=== PATIENT | female | born 1995 | race Caucasian/White ===

== ENCOUNTER 2020-07-17 16:04 | Emergency (ER) | payer MEDICAID, SELFPAY ==
[2020-07-17 16:12] VITALS: BP 140/65; PULSE 106; RESP 19; TEMP 36.9; O2SAT 100; BMI 45.7
[2020-07-17 16:41] VITALS: BP 140/65; PULSE 106; RESP 19; TEMP 36.9; O2SAT 100; BMI 45.7
--- NOTE | 2020-07-17 16:45 | HMH.EDUTC ---
[facility] [place] Disposition Clinical Impression: Insect bite Qualifiers: Encounter type: initial encounter Site of insect bite: upper arm Laterality: right Qualified Code(s): S40.861A - Insect bite (nonvenomous) of right upper arm, initial encounter Disposition: Home, Self-Care Condition on Discharge: Good Instructions: Insect Bites (Alternative Therapy), Insect Bites and Stings, DI for Insect Bites and Stings Additional Instructions: Over the counter Hydrocortisone Cream to the area may help if you notice that the welp returns Over the counter Benadry may help with reactions to bites or stings Return if needed Straight to ER If any life threatening symptoms, chest pain or shortness of breath Follow up with Family Doctor if no improvement or return of symptoms Referrals: Fang Hernandez PA [Primary Care Provider] - As needed Forms: Work/School Release Time of Disposition: 17:02 Medical Decision Making - Azar Inquiry Pt receiving controlled substance: No Azar was queried for this patient: No Vital Signs: 07/17/20 16:12 07/17/20 16:41 07/17/20 16:49 Temperature 98.5 F 98.5 F 98.5 F Temperature Source Oral Oral Pulse Rate 89 Pulse Rate [Left Radial] 106 H 106 H Respiratory Rate 19 19 19 Blood Pressure 140/65 Blood Pressure [Right Arm] 140/65 140/65 Blood Pressure Mean [Right Arm] 90 90 Blood Pressure Source [Right Arm] Automatic Cuff Automatic Cuff Blood Pressure Position [Right Arm] Sitting Sitting 02 Sat by Pulse Oximetry 100 100 Oxygen Delivery Method Room Air Room Air Medical Decision Narrative: No longer having any redness, no swelling, no temperature difference, denies numbness denies injury reports feeling of bite/sting last night in right upper arm as she left work like something may have bitten/stung her no obvious swelling or redness noted at this time. Patient denies history of use of Control and area that she was feeling on her arm is no longer there. Discussed that she may apply over the counter Hydrocortisone to area to help with itching and over the counter benadryl [facility] [place] HPI - General Stated complaint: Possible blood clot in R Upper arm Time Seen by Provider: 07/17/20 16:45 Mode of Arrival: Ambulatory Source of Information: Patient Limitations: No Limitations Description of Symptoms (Recalled from Triage Doc. by RN): c/o red area on the inner part of her right arm. - History of Present Illness Provider Complaint: Patient states that she was leaving work yesterday when she felt a sting in her right upper arm like something had bitten her States that she looked and didnt see any type of bugs and she noticed when she got home that she had a welp like area and small hard knot and felt itchy States that then she noticed the welp was going away but still having some itchy like sensation there States that she felt like the knot moved as the swelling went down States that knot is now gone and no longer having any redness but wanted to get it checked - Related Data Previous Rx's Medication Instructions Recorded ondansetron HCl 4 mg tablet 4 mg PO TID PRN #6 tab 03/27/19 Allergies Allergy/AdvReac Type Severity Reaction Status Date / Time latex [LATEX] Allergy Unknown Verified 03/27/19 10:50 [facility] History - Hepatitis A Screen Attestation statement:: This patient has been screened for Hepatitis A risk factors. I have reviewed the patient's past medical history: Yes Other Surgeries: Yes: No Previous Surgery Amputation: No Fractures: No - Social History Smoking Status: Never smoker Alcohol Intake: never Substance Use Type: denies use Occupational Status: employed Housing: house Household Members: family Family Hx:: Non-contributory ROS Obtained: Yes All systems reviewed & no additional complaints, Yes Systems reviewed as appropriate & no additional complaints - Constitutional Constitutional: Reports system reviewed and no additional complaints, except as Rajesh restrepo
[2020-07-17 16:49] VITALS: BP 140/65; PULSE 89; RESP 19; TEMP 36.9; O2SAT 100
== END 2020-07-17 17:05 | disposition home or self-care (01) ==
PROVIDERS: Emergency Provider Nurse Practitioner; PCP Nurse Practitioner Family
DX: S40.861A Insect bite (nonvenomous) of right upper arm, initial encounter (principal); W57.XXXA Bitten or stung by nonvenomous insect and other nonvenomous arthropods, initial encounter; Z91.040 Latex allergy status
CPT/HCPCS: 99201

== ENCOUNTER 2021-02-14 11:52 | Emergency (ER) | payer OTHER, SELFPAY ==
[2021-02-14 11:59] VITALS: BP 147/103; PULSE 89; RESP 18; TEMP 36.8; O2SAT 100; BMI 45.7
--- NOTE | 2021-02-14 12:05 | HMH.EDUTC ---
[facility] [place] Disposition Clinical Impression: Injury of thumb, right Qualifiers: Encounter type: initial encounter Qualified Code(s): S69.91XA - Unspecified injury of right wrist, hand and finger(s), initial encounter Sprain of hand, thumb, right Qualifiers: Encounter type: initial encounter Sprain of finger site: interphalangeal joint Qualified Code(s): S63.621A - Sprain of interphalangeal joint of right thumb, initial encounter Disposition: Home, Self-Care Condition on Discharge: Good Instructions: DI for Ulnar Collateral Ligament Sprain of Thumb Additional Instructions: Go to [employer] 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 Call ortho Wednesday morning for follow up appointment. Prescriptions: Ibuprofen [Ibuprofen 800mg Tablet] 800 mg PO Q8HP PRN 10 Days #30 tab PRN Reason: Moderate Pain Transmission Status: Pending to [facility] Referrals: Adán Cole MD [Staff Physician] - Time of Disposition: 12:57 Medical Decision Making - Azar Inquiry Pt receiving controlled substance: No Vital Signs: 02/14/21 11:59 02/14/21 12:07 Temperature 98.3 F 98.3 F Temperature Source Oral Oral Pulse Rate [Left Radial] 89 89 Respiratory Rate 18 16 Blood Pressure [Left Arm] 147/103 H 138/98 H Blood Pressure Mean [Left Arm] 117 111 Blood Pressure Source [Left Arm] Automatic Cuff Automatic Cuff Blood Pressure Position [Left Arm] Sitting Sitting 02 Sat by Pulse Oximetry 100 98 Oxygen Delivery Method Room Air Room Air Orders (Tests/Meds): ORDERS Category Date Time Status XR hand RT min 3V Stat Exams 02/14/21 12:09 Taken - Radiology Data #1 Image(s): Hand Image Reviewed: Yes I reviewed the patient's radiology image Preliminary Findings: No Fracture Seen [facility] [place] HPI - General Stated complaint: ao 02/13/21 injury to Rt thumb Time Seen by Provider: 02/14/21 12:08 Mode of Arrival: Ambulatory Source of Information: Patient Limitations: No Limitations Description of Symptoms (Recalled from Triage Doc. by RN): Pt c/o pain to R thumb; bruising and swelling noted. Pt reports injured at work yesterday while trying to life a dog, states her thumb bent backwards. - History of Present Illness Provider Complaint: Patient presents with pain and swelling in her right thumb. Started yesterday after lifting a dog at work. Has limited ROM and swelling and bruising. Onset (ago): day(s) (1) Location: right, upper extremity Relieving factors: none Exacerbating factors: none Associated symptoms: denies other symptoms Treatments prior to arrival: none - Related Data Previous Rx's Medication Instructions Recorded ondansetron HCl 4 mg tablet 4 mg PO TID PRN #6 tab 03/27/19 Ibuprofen [Ibuprofen 800mg 800 mg PO Q8HP PRN 10 Days #30 tab 02/14/21 Tablet] Allergies Allergy/AdvReac Type Severity Reaction Status Date / Time latex [LATEX] Allergy Unknown Verified 03/27/19 10:50 [facility] History - Hepatitis A Screen Attestation statement:: This patient has been screened for Hepatitis A risk factors. I have reviewed the patient's past medical history: Yes Medical History: Denies:: Cancer, Diabetes Mellitus Type 1, Diabetes Mellitus Type 2, Internal Pacemaker, MRSA Laterality Cases: Bilateral: Tonsillectomy Other Surgeries: Yes: No Previous Surgery. No: Pacemaker Amputation: No Fractures: No - Social History Smoking Status: Never smoker Alcohol Intake: never Substance Use Type: denies use Occupational Status: unemployed Housing: house Household Members: family Family Hx:: Non-contributory ROS Obtained: Yes All systems reviewed & no additional complaints - Musculoskeletal Musculoskeletal: Reports as per HPI Physical Exam - General General appearance: alert, in no apparent distress - Head Head exam: normocephalic - Eye Eye exam: Present: PERRL - Respiratory Respiratory exam: Present: normal lung sounds bilaterally - Cardiovascular Cardiovascular exam: Present: regular rate,
[2021-02-14 12:07] VITALS: BP 138/98; PULSE 89; RESP 16; TEMP 36.8; O2SAT 98; BMI 45.8
--- NOTE | 2021-02-14 12:09 | XR_ITS ---
PROCEDURE: XR HAND RT MIN 3V CLINICAL INDICATION: bent right thumb back with swelling and bruising COMPARISON: No exams were available for comparison FINDINGS: No fracture or dislocation. No lytic or blastic change. There is normal mineralization. The joint spaces are well-preserved. No significant degenerative/arthritic changes. No erosive changes evident. Other findings:None. IMPRESSION: No acute findings. Dictated by: Imtiaz Nunez MD 02/14/2021 13:16 Imtiaz Nunez MD in [place] 02/14/2021 13:16
[2021-02-14 13:02] VITALS: BP 132/72; PULSE 80; RESP 16; TEMP 36.8; O2SAT 98
== END 2021-02-14 13:04 | disposition home or self-care (01) ==
PROVIDERS: Emergency Provider Physician Assistant
DX: S63.621A Sprain of interphalangeal joint of right thumb, initial encounter (principal); X50.0XXA Overexertion from strenuous movement or load, initial encounter; Y92.89 Other specified places as the place of occurrence of the external cause; Z91.040 Latex allergy status
CPT/HCPCS: 73130; 99202; G0463

== ENCOUNTER 2021-03-07 09:03 | Outpatient (RCR) | payer OTHER, SELFPAY | END 2021-03-07 10:00 | disposition home or self-care (01) | LOC: OT 09:03 | PROVIDERS: Visit Provider Orthopaedic Surgery | DX: M79.644 Pain in right finger(s) (principal) | CPT/HCPCS: 97763 ==

== ENCOUNTER → 2021-07-09 10:34 | Outpatient (CLI) | payer SELFPAY | PROVIDERS: Visit Provider Nurse Practitioner | DX: Z20.822 Contact with and (suspected) exposure to COVID-19 (principal) | CPT/HCPCS: C9803; U0003; U0005 ==

== ENCOUNTER → 2021-07-27 12:12 | Outpatient (CLI) | payer OTHER, SELFPAY | PROVIDERS: PCP Family Medicine; Visit Provider Nurse Practitioner | DX: Z20.822 Contact with and (suspected) exposure to COVID-19 (principal); U07.1 COVID-19 | CPT/HCPCS: C9803; U0003; U0005 ==

== ENCOUNTER 2022-06-15 11:49 | Emergency (ER) | payer OTHER, SELFPAY ==
[2022-06-15 13:15] VITALS: BP 145/89; PULSE 89; RESP 18; TEMP 36.9; O2SAT 97; BMI 45.7
--- NOTE | 2022-06-15 13:17 | HMH.EDUTC ---
[facility] [place] Disposition Clinical Impression: Need for Tdap vaccination Dog bite of left arm Qualifiers: Encounter type: initial encounter Qualified Code(s): S41.152A - Open bite of left upper arm, initial encounter Disposition: Home, Self-Care Condition on Discharge: Good Instructions: DI for Animal Bites, Tetanus, Diphtheria, Pertussis (Tdap) Vaccine, DI for Dog Bite Additional Instructions: Keep the wounds clean and dry. Follow up with your regular doctor. Take the antibiotics as directed. apply the topical antibiotics as directed. Make sure you stay in contact with the health department regarding the health of the dog. Watch the puncture wound for signs of worsening infection, such as worsening redness, drainage, swelling, etc. GO TO THE ER FOR ANY WORSENING SYMPTOMS Prescriptions: Ibuprofen [Ibuprofen 600mg Tablet] 600 mg PO Q6HP PRN #30 tab PRN Reason: Mild Pain Transmission Status: Received by [id number] Amoxicillin/Potassium Clav [Amox-Clav 875-125 mg Tablet] 1 tab PO BID #20 tab Transmission Status: Received by [facility] Mupirocin [Bactroban 2% Ointment 22gm tube] 1 applicatio TP TID 7 Days #1 gm Transmission Status: Received by [id number] Referrals: Provider,Referral, MD [Primary Care Provider] - Forms: Work/School Release Time of Disposition: 14:24 Medical Decision Making - Medical Records Medical records reviewed: No: I reviewed the patient's medical records. - Azar Inquiry Pt receiving controlled substance: No Vital Signs: 06/15/22 13:15 06/15/22 14:25 Temperature 98.4 F 98.4 F Temperature Source Oral Pulse Rate 89 Pulse Rate [Right Brachial] 89 Respiratory Rate 18 18 Blood Pressure 145/89 H Blood Pressure [Right Arm] 145/89 H Blood Pressure Mean [Right Arm] 107 Blood Pressure Source [Right Arm] Automatic Cuff Blood Pressure Position [Right Arm] Sitting 02 Sat by Pulse Oximetry 97 Oxygen Delivery Method Room Air Orders (Tests/Meds): ED MEDICATIONS Discontinued Medications Generic Name Dose Route Start Last Admin Trade Name Freq PRN Reason Stop Dose Admin Tetanus/Reduced Diphtheria/Acell Pertussis 0.5 ml 06/15/22 13:32 06/15/22 13:45 Tet/Diphth/Pert-Adult 0.5ml Syringe IM 06/15/22 13:33 0.5 ml .ONCE ONE Administration - Radiology Data #1 Image(s): Elbow Image Reviewed: Yes I reviewed the patient's radiology image, Yes I have reviewed radiologist's interpretation Preliminary Findings: Normal/NAD FINAL REPORT CLINICAL HISTORY: dog bite FINDINGS: LEFT ELBOW Three views were obtained. There is no acute fracture or dislocation. There is orthopedic hardware and 4 screws at the distal humeral diaphysis. The joint spaces are intact. There is no soft tissue abnormality. IMPRESSION: No acute bony abnormality. 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 She has 1 deep puncture wound and several areas of superficialy abrasions. She denies any other injury. She is not sure when her last tetanus immunization was given to her. - Related Data Home Medications Medication Instructions Recorded Confirmed fluticasone propionate 50 1 spray INTRANASAL DAILY 03/07/21 05/02/21 mcg/actuation nasal spray,suspension loratadine 10 mg tablet 10 mg PO DAILY 03/07/21 05/02/21 Previous Rx's Medication Instructions Recorded Amoxicillin/Potassium Clav 1 tab PO BID #20 tab 06/15/22 [Amox-Clav 875-125 mg Tablet] Ibuprofen [Ibuprofen 600mg 600 mg PO Q6HP PRN #
[2022-06-15 14:25] VITALS: BP 145/89; PULSE 89; RESP 18; TEMP 36.9; O2SAT 97
== END 2022-06-15 14:40 | disposition home or self-care (01) ==
PROVIDERS: Emergency Provider Nurse Practitioner Family
DX: S41.152A Open bite of left upper arm, initial encounter (principal); Z23 Encounter for immunization
CPT/HCPCS: 12001; 73080; 90471; 90715; 99213; G0463

== ENCOUNTER 2022-09-10 20:28 | Emergency (ER) | payer OTHER, SELFPAY ==
[2022-09-10 20:30] VITALS: BP 145/83; PULSE 106; RESP 16; TEMP 36.6; O2SAT 98; BMI 45.3
[2022-09-10 20:52] LABS: Coronavirus 19, PCR Not Detected (NotDetected); Influenza A, PCR Not Detected (NotDetected); Influenza B, PCR Not Detected (NotDetected)
--- NOTE | 2022-09-10 20:56 | HMH.EDURI ---
Discharge Plan Disposition Patient Disposition: Home, Self-Care Chief Complaint: Upper Respiratory Infection Prescriptions Prescriptions: No Action loratadine [Claritin] 10 mg tablet 10 mg PO DAILY fluticasone propionate 50 mcg/actuation spray,suspension 1 spray INTRANASAL DAILY Rx Instructions: administer into each nostril ibuprofen 600 MG tablet 600 mg PO Q6HP PRN (Reason: Mild Pain) Qty: 30 0RF amoxicillin-pot clavulanate 1 EACH tablet 1 tab PO BID Qty: 20 0RF mupirocin 22 GM ointment 1 applicatio TP TID 7 Days Qty: 1 0RF Referrals Follow up/Referrals: Provider,Referral, MD [Primary Care Provider] - See instructions Clinical Impressions Clinical Impression: Upper respiratory infection, Instructions Patient Instructions: DI for Acute Bronchitis Discharge ED Provider: Jaime Rosales URI/Sore Throat HPI General Chief Complaint: Upper Respiratory Infection Stated Complaint: vomiting cough KATHLEEN Time Seen by Provider: 09/10/22 20:56 Mode of Arrival: Ambulatory Source of Information: Patient, Spouse and Medical Record Limitations: No Limitations Description of Symptoms (Recalled from ER Triage Doc. by RN): pt c/o cough, congestion,KATHLEEN, body aches fever since wednesday, pt states that she is currently 14 weeks History of Present Illness HPI Narrative: has been sick since sat and had uri sx with cough and congestion and has assoc kathleen which mostly started today - pt has seen pcp on wednesday - no vag bleeding and is 14 weeks preg Complaint: fever, cough and nasal congestion Onset (ago): day(s) Duration: intermittent Severity: moderate Able to tolerate fluids by mouth: Yes Treatments prior to arrival: acetaminophen Related Data Home Medications Medication Instructions Recorded Confirmed fluticasone propionate 50 1 spray intranasal DAILY 03/07/21 05/02/21 mcg/actuation nasal spray,suspension loratadine 10 mg tablet (Claritin) 10 mg PO DAILY 03/07/21 05/02/21 Previous Rx's Medication Instructions Recorded amoxicillin 875 mg-potassium 1 tab PO BID #20 tabs 06/15/22 clavulanate 125 mg tablet ibuprofen 600 mg tablet 600 mg PO Q6HP PRN Mild Pain #30 06/15/22 tabs mupirocin 2 % topical ointment 1 applicatio topical TID 7 days #1 06/15/22 g Allergies Allergy/AdvReac Type Severity Reaction Status Date / Time prednisone Allergy Intermediate Verified 05/02/21 09:45 latex [LATEX] Allergy Unknown Verified 05/02/21 09:45 PFSH PFSH Social History Smoking Status: Former smoker second hand exposure: No alcohol intake: never substance use type: denies use current occupational status: unemployed Travel in the last 8 weeks: None household members: family housing: house caffeine: Yes ROS Obtained: Yes All systems reviewed & no additional complaints except as documented Physical Exam General General appearance: alert Head Head exam: normocephalic Eye Eye exam: Present PERRL and EOMI; Absent scleral icterus ENT ENT exam: Present normal oropharynx, mucous membranes moist and TM's normal bilaterally Neck Neck exam: Present full ROM and trachea midline; Absent meningismus Respiratory Respiratory exam: Present normal lung sounds bilaterally; Absent respiratory distress Cardiovascular Cardiovascular exam: Present regular rate; Absent systolic murmur Abdominal Exam Abdominal exam: Present soft Comment: fht - ok Extremities Exam Extremities exam: Present full ROM Neurological Exam Neurological exam: Present alert, oriented X3 and CN II-XII intact; Absent motor sensory deficit Psychiatric Psychiatric exam: Present normal affect Skin Skin exam: Absent rash Medical Decision Making Medical Records Medical records reviewed: Yes I reviewed the patient's medical records. Azar Inquiry Pt receiving controlled substance: No Vital Signs: 09/10/22 20:30 Temperature 97.8 F Temperature Source Oral Pulse Rate [R
[2022-09-10 20:58] LABS: Basophils # 0.1 K/mm3 (0-0.2); Basophils % 0.7 % (0.1-2.0); Eosinophils # 0.1 K/mm3 (0.0-0.4); Eosinophils % 0.5 % (0.1-12.0); Hematocrit 40.4 % (37.0-47.0); Hemoglobin 13.6 g/dL (12.2-16.2); Lymphocytes # 3.1 K/mm3 (0.7-4.5); Lymphocytes % 23.8 % (10-50); Mean Corpuscular HGB Conc 33.8 g/dL (31.8-35.4); Mean Corpuscular Hemoglobin 30.1 pg (27.0-31.2); Mean Corpuscular Volume 89.2 fl (81-99); Mean Platelet Volume 8.7 fl (7.4-10.4); Monocytes # 0.5 K/mm3 (0.1-1.0); Monocytes % 3.8 % (1.7-9.3); Neutrophils # 9.2 K/mm3 (1.8-7.8); Neutrophils % 71.2 % (37.0-80.0); Platelet Count 302 K/mm3 (142-424); Red Blood Count 4.53 M/mm3 (4.20-5.40); Red Cell Distribution Width 12.9 % (11.5-17.5)
[2022-09-10 21:01] VITALS: BP 120/62; PULSE 88; O2SAT 100
[2022-09-10 21:02] LABS: Chloride 100 mmol/L (98-107); Sodium 136 mmol/L (136-145)
[2022-09-10 21:03] LABS: Potassium 3.6 mmoL/L (3.5-5.1)
[2022-09-10 21:05] LABS: Alanine Aminotransferase 21 U/L (12-78); Alkaline Phosphatase 102 U/L (38-126); Aspartate Amino Transferase 26 U/L (14-36); Bilirubin,Total 0.6 mg/dl (0.2-1.3); Blood Urea Nitrogen 5 mg/dl (7-17); Creatinine Clearance Estimated 132 mL/min (50-200); Estimated Glomerular Filt Rate 147 ml/min (>60); GFR (African American) 178 ML/MIN (>60)
[2022-09-10 21:06] LABS: Albumin Level 4.1 g/dl (3.5-5.0); Albumin/Globulin Ratio 1.1 (1.1-1.8); Anion Gap 14.6 mEq/L (5-15); Calcium 9.9 mg/dl (8.4-10.2); Carbon Dioxide 25 mmol/L (22.0-30.0); Globulin 3.7 g/dL (1.3-3.2); Glucose 85 mg/dl (74-100); Total Protein,Serum 7.8 g/dl (6.3-8.2)
--- NOTE | 2022-09-10 21:16 | PC.NURSE ---
Rechecked pt condition. No needs or complaints voiced. Pt made aware of need for urine sample.
--- NOTE | 2022-09-10 21:30 | PC.NURSE ---
Dr. Rosales at
[2022-09-10 22:05] VITALS: BP 115/78; PULSE 79; RESP 18; TEMP 36.6; O2SAT 100
== END 2022-09-10 22:08 | disposition home or self-care (01) ==
PROVIDERS: Emergency Provider Emergency Medicine
DX: O26.892 Other specified pregnancy related conditions, second trimester (principal); J06.9 Acute upper respiratory infection, unspecified; Z3A.14 14 weeks gestation of pregnancy
CPT/HCPCS: 80053; 85025; 99282; C9803; J2405; U0003; U0005

== ENCOUNTER 2023-02-19 12:02 | Outpatient (CLI) | payer OTHER, SELFPAY ==
[2023-02-19 13:04] VITALS: BMI 42.6
--- NOTE | 2023-02-19 13:08 | PC.NURSE ---
Pt stated that she received a tdap vaccine back in may and tolerated it fine.
== END 2023-02-19 12:10 | disposition home or self-care (01) ==
LOC: UTC.OUT 12:03
PROVIDERS: PCP Nurse Practitioner Family; Visit Provider Nurse Practitioner
DX: Z23 Encounter for immunization (principal)
CPT/HCPCS: 90715

== ENCOUNTER → 2023-07-16 11:02 | Outpatient (CLI) | payer OTHER, SELFPAY ==
[2023-07-16 11:22] LABS: Adenovirus F 40/41, stool Not Detected (NotDetected); Astrovirus Not Detected (NotDetected); Campylobacter Not Detected (NotDetected); Clostridium Difficile A/B, PCR Not Detected (NotDetected); Cryptosporidium Not Detected (NotDetected); Cyclospora Cayetanesis Not Detected (NotDetected); Entamoeba histolytica Not Detected (NotDetected); Enteroaggregative E coli Not Detected (NotDetected); Enteropathogenic E coli Not Detected (NotDetected); Enterotoxigenic E coli Not Detected (NotDetected); Giardia lamblia Not Detected (NotDetected); Norovirus Not Detected (NotDetected); Plesimonas Shigalloides, PCR Not Detected (NotDetected); Rotavirus A Not Detected (NotDetected); Salmonella, PCR Not Detected (NotDetected); Sapovirus Not Detected (NotDetected); Shiga-like toxin E coli Not Detected (NotDetected); Shigella Enterovasive E coli Not Detected (NotDetected); Vibrio Cholerae Not Detected (NotDetected); Vibrio, PCR Not Detected (NotDetected); Yersinia Entercolitica, PCR Not Detected (NotDetected)
== END ==
PROVIDERS: PCP Nurse Practitioner Family; Visit Provider Physician Assistant
DX: R19.4 Change in bowel habit (principal)
CPT/HCPCS: 87507

== ENCOUNTER → 2023-07-19 15:41 | Outpatient (CLI) | payer OTHER, SELFPAY ==
[2023-07-19 15:56] LABS: Adenovirus F 40/41, stool Not Detected (NotDetected); Astrovirus Not Detected (NotDetected); Campylobacter Not Detected (NotDetected); Cryptosporidium Not Detected (NotDetected); Cyclospora Cayetanesis Not Detected (NotDetected); Entamoeba histolytica Not Detected (NotDetected); Enteroaggregative E coli Not Detected (NotDetected); Enterotoxigenic E coli Not Detected (NotDetected); Giardia lamblia Not Detected (NotDetected); Norovirus Not Detected (NotDetected); Plesimonas Shigalloides, PCR Not Detected (NotDetected); Rotavirus A Not Detected (NotDetected); Salmonella, PCR Not Detected (NotDetected); Sapovirus Not Detected (NotDetected); Shiga-like toxin E coli Not Detected (NotDetected); Shigella Enterovasive E coli Not Detected (NotDetected); Vibrio Cholerae Not Detected (NotDetected); Vibrio, PCR Not Detected (NotDetected); Yersinia Entercolitica, PCR Not Detected (NotDetected)
[2023-07-20 15:18] LABS: Clostridium Difficile A/B, PCR Detected (NotDetected)
[2023-07-20 15:19] LABS: Enteropathogenic E coli Detected (NotDetected)
== END ==
PROVIDERS: PCP Nurse Practitioner Family; Visit Provider Physician Assistant
DX: R19.4 Change in bowel habit (principal); A04.72 Enterocolitis due to Clostridium difficile, not specified as recurrent; A04.0 Enteropathogenic Escherichia coli infection
CPT/HCPCS: 87507

== ENCOUNTER → 2023-09-07 10:03 | Outpatient (CLI) | payer OTHER, SELFPAY ==
[2023-09-07 10:11] LABS: Adenovirus F 40/41, stool Not Detected (NotDetected); Astrovirus Not Detected (NotDetected); Campylobacter Not Detected (NotDetected); Clostridium Difficile A/B, PCR Not Detected (NotDetected); Cryptosporidium Not Detected (NotDetected); Cyclospora Cayetanesis Not Detected (NotDetected); Entamoeba histolytica Not Detected (NotDetected); Enteroaggregative E coli Not Detected (NotDetected); Enteropathogenic E coli Not Detected (NotDetected); Enterotoxigenic E coli Not Detected (NotDetected); Giardia lamblia Not Detected (NotDetected); Norovirus Not Detected (NotDetected); Plesimonas Shigalloides, PCR Not Detected (NotDetected); Rotavirus A Not Detected (NotDetected); Salmonella, PCR Not Detected (NotDetected); Sapovirus Not Detected (NotDetected); Shiga-like toxin E coli Not Detected (NotDetected); Shigella Enterovasive E coli Not Detected (NotDetected); Vibrio Cholerae Not Detected (NotDetected); Vibrio, PCR Not Detected (NotDetected); Yersinia Entercolitica, PCR Not Detected (NotDetected)
== END ==
PROVIDERS: PCP Nurse Practitioner Family; Visit Provider Physician Assistant
DX: R19.4 Change in bowel habit (principal)
CPT/HCPCS: 87507

== ENCOUNTER 2024-02-28 19:02 | Emergency (ER) | payer OTHER, SELFPAY ==
[2024-02-28 19:04] VITALS: BP 163/100; PULSE 107; RESP 18; TEMP 37; O2SAT 96; BMI 51.2
--- NOTE | 2024-02-28 19:15 | ECG_ITS ---
APPROVED REPORT Exam: Resting ECG HR:99 bpm ECG Measurements Heart Rate 99 AXES [place] 136 P 64 QRSd 98 QRS 71 QT 341 T 73 QTc 397 Conclusion SINUS RHYTHM NORMAL ECG UNCONFIRMED REPORT Electronically signed by : Leonard York, 02/28/2024 22:53:57
--- NOTE | 2024-02-28 19:19 | ED_ITS ---
<Statement entered by Kelly York MD - 02/28/24 22:12> I was consulted by the MARTHA, and we discussed the complexity of the problems being addressed. I approved the treatment and management plan for this patient's care in the emergency department, thus performing a substantive portion of the medical decision making. Kelly York MD, HERNÁN, FACEP Discharge Plan Disposition Patient Disposition: Home, Self-Care Condition: Good Prescriptions Prescriptions: New methocarbamol 750 mg tablet 750 mg PO QID Qty: 120 0RF No Action loratadine [Claritin] 10 mg tablet 10 mg PO DAILY fluticasone propionate 50 mcg/actuation spray,suspension 1 spray INTRANASAL DAILY Rx Instructions: administer into each nostril ibuprofen 600 MG tablet 600 mg PO Q6HP PRN (Reason: Mild Pain) Qty: 30 0RF amoxicillin-pot clavulanate 1 EACH tablet 1 tab PO BID Qty: 20 0RF mupirocin 22 GM ointment 1 applicatio TP TID 7 Days Qty: 1 0RF Referrals Follow up/Referrals: Shireen Solitario APRN [Primary Care Provider] - See instructions Activity Restrictions/Add. Instructions Additional Instructions/Restrictions: Follow-up closely with your PCP. Utilize your home metered-dose inhalers as prescribed. Return to the emergency department for any worsening signs or symptoms as needed. Clinical Impressions Clinical Impression: Asthma exacerbation Qualifiers: Asthma severity: mild Asthma persistence: intermittent Qualified Code(s): J 45.21 - Mild intermittent asthma with (acute) exacerbation Back pain Qualifiers: Back pain location: thoracic back pain Chronicity: acute Back pain laterality: midline Qualified Code(s): M54.6 - Pain in thoracic spine Discharge ED Provider: Kelly York General Adult HPI General Chief complaint: Shortness of Breath/Dyspnea Stated complaint: SOA Time Seen by Provider: 02/28/24 19:19 History of Present Illness HPI narrative: Patient presents for evaluation of shortness of breath and back pain. Patient states that she has been short of breath since yesterday and today she is in addition having back pain in the mid upper thoracic area. Patient denies trauma. Patient denies recent illness however she has had both COVID and a gastroenteritis in the last month. She denies fever chills hemoptysis hematochezia melena nausea vomiting diarrhea. Related Data Home Medications Medication Instructions Recorded Confirmed fluticasone propionate 50 1 spray intranasal DAILY 03/07/21 05/02/21 mcg/actuation nasal spray,suspension loratadine 10 mg tablet (Claritin) 10 mg PO DAILY 03/07/21 05/02/21 Previous Rx's Medication Instructions Recorded amoxicillin 875 mg-potassium 1 tab PO BID #20 tabs 06/15/22 clavulanate 125 mg tablet ibuprofen 600 mg tablet 600 mg PO Q6HP PRN Mild Pain #30 06/15/22 tabs mupirocin 2 % topical ointment 1 applicatio topical TID 7 days #1 06/15/22 g methocarbamol 750 mg tablet 750 mg PO QID #120 tabs 02/28/24 Allergies Allergy/AdvReac Type Severity Reaction Status Date / Time prednisone Allergy Intermediate Verified 05/02/21 09:45 latex [LATEX] Allergy Unknown Verified 05/02/21 09:45 [facility] Disclaimer: The information contained in this section may have been updated after the patient was seen, as this information can be updated by other users. Social History Smoking Status: Never smoker second hand exposure: No alcohol intake: never substance use type: denies use current occupational status: unemployed Travel in the last 8 weeks: None household members: family housing: house caffeine: Yes ROS Obtained: Yes Systems reviewed as appropriate & no additional complaints except as documented Physical Exam General General appearance: alert and in no apparent distress Head Head exam: atraumatic and normal inspection Eye Eye exam: Present normal appearance and EOMI ENT ENT exam: Present normal exam, normal oropharynx and mucous membranes moist Neck Neck exam: Present normal inspection and full ROM Chest Chest inspection: Present normal inspection and symmetric chest wall rise Respiratory Respiratory exam: Present normal lung sounds bilaterally; Absent respiratory distress, wheezes, stridor or accessory muscle use Cardiovascular Cardiovascular exam: Present normal rhythm, tachycardia, normal heart sounds, +S1 and +S2 Abdominal Exam Abdominal exam: Present soft (Obese) and normal bowel sounds; Absent tenderness, guarding or rebound Extremities Exam Extremities exam: Present normal inspection and full ROM Back Exam Back exam: Present normal inspection, full ROM and tenderness (Patient has tenderness in the thoracic musculature along the right side of the back but no midline tenderness and no deformity palpated along the entirety of the dorsal spine) Neurological Exam Neurological exam: Present alert, oriented X3 and CN II-XII intact Skin Skin exam: Present warm, dry and normal color Medical Decision Making Medical Records Medical records reviewed: Yes I reviewed the patient's medical records. Azar Inquiry Pt receiving controlled substance: No Vital Signs: 02/28/24 19:04 02/28/24 19:32 02/28/24 20:02 Temperature 98.6 F Temperature Source Oral Pulse Rate 87 84 Pulse Rate [Left Radial] 107 H Respiratory Rate 18 Blood Pressure 139/87 160/87 H Blood Pressure [Right Arm] 163/100 H Blood Pressure Mean 105 111 Blood Pressure Mean [Right Arm] 121 Blood Pressure Source [Right Arm] Automatic Cuff Blood Pressure Position [Right Arm] Sitting 02 Sat by Pulse Oximetry 96 98 98 Oxygen Delivery Method Room Air 02/28/24 20:10 02/28/24 20:10 Temperature Temperature Source Pulse Rate 92 H 82 Pulse Rate [Left Radial] Respiratory Rate Blood Pressure Blood Pressure [Right Arm] Blood Pressure Mean Blood Pressure Mean [Right Arm] Blood Pressure Source [Right Arm] Blood Pressure Position [Right Arm] 02 Sat by Pulse Oximetry Oxygen Delivery Method Lab Data Lab results reviewed: Yes I reviewed the patient's lab results. Lab Results 02/28/24 19:27: WBC 11.1 H, RBC 4.35, Hgb 13.0, Hct 39.1, MCV 89.9, MCH 29.9, MCHC 33.2, RDW 13.1, Plt Count 290, MPV 9.0, Neut % (Auto) 60.8, Lymph % (Auto) 33.4, [place] % (Auto) 3.8, Eos % (Auto) 1.3, Baso % (Auto) 0.7, Neut # (Auto) 6.7, Lymph # (Auto) 3.7, [place] # (Auto) 0.4, Eos # (Auto) 0.2, Baso # (Auto) 0.1, PT 10.8, INR 1.00, D-Dimer 0.44, Sodium 139, Potassium 3.4 L, Chloride 106, Carbon Dioxide 30, Anion Gap 6.4, BUN 9, Creatinine 0.70, Estimated Creat Clear 94, Estimated GFR 99, Est GFR ( Amer) 120, Glucose 112 H, Calcium 9.8, M agnesium 1.5 L, Total Bilirubin 0.4, AST 26, ALT 32, Alkaline Phosphatase 81, Troponin I < 0.01, NT-Pro-B Natriuret Pep 318 H, Total Protein 6.5, Albumin 3.6, Globulin 2.9, Albumin/Globulin Ratio 1.2, Lipase 77, Serum HCG, Qual Negative 02/28/24 19:27 02/28/24 19:27 Orders (Tests/Meds): ED MEDICATIONS Discontinued Medications Generic Name Dose Route Start Last Admin Trade Name Freq PRN Reason Stop Dose Admin Acetaminophen 1,000 mg 02/28/24 19:28 02/28/24 19:55 Acetaminophen 1,000mg/100ml Vial IV 02/28/24 19:29 1,000 mg ONCE ONE Administration Albuterol/Ipratropium 3 ml 02/28/24 19:28 02/28/24 20:10 Ipratropium/Albuterol 3 Ml Neb IH 02/28/24 19:29 3 ml ONCE ONE Administration Lactated Ringer's 1,000 mls @ 999 mls/hr 02/28/24 19:28 02/28/24 19:55 Lactated Ringer's 1000 Ml Bag IV 02/28/24 20:28 999 mls/hr .Q1H1M ONE Administration Ketorolac Tromethamine 15 mg 02/28/24 19:28 02/28/24 20:02 Ketorolac 30mg/Ml Vial IV 02/28/24 19:29 Not Given ONCE ONE Lidocaine 1 each 02/28/24 19:28 02/28/24 19:55 Lidocaine 5% Transdermal Patch TP 02/28/24 19:29 1 each ONCE ONE Administration ORDERS Category Date Time Status Chest XR -- portable [XR chest portable] Stat Exams 02/28/24 19:29 Completed BNP [NT Pro Brain Natriuretic Pep.] Stat Lab 02/28/24 19:27 Completed CBC w/Auto Diff [Complete Blood Count Auto Diff] Stat Lab 02/28/24 19:27 Completed CMP [Comprehensive Metabolic Panel] Stat Lab 02/28/24 19:27 Completed D-Dimer Stat Lab 02/28/24 19:27 Completed HCG Qualitative, Serum Stat Lab 02/28/24 19:27 Completed INR [Prothrombin Time INR] Stat Lab 02/28/24 19:27 Completed Lipase Stat Lab 02/28/24 19:27 Completed Magnesium Stat Lab 02/28/24 19:27 Completed Trop I [Troponin I] Stat Lab 02/28/24 19:27 Completed Troponin I Q3H Lab 02/28/24 22:30 Ordered Troponin I Q3H Lab 02/29/24 01:30 Ordered Medical Decision Narrative: In summary patient is a 28-year-old female who presents to the emergency department for evaluation of shortness of breath and back pain. Patient is presenting with a blood pressure of 163/100 with a heart rate of 107 with a sat of 96% on room air with respiratory rate of 18 upon arrival, and afebrile. Physical exam is remarkable for normal breath sounds heard to the bases without adventitious sounds, tenderness to palpation in the musculature of the right side of the upper back but no midline vertebral tenderness. There is no abdominal tenderness on exam. Differential diagnosis includes musculoskeletal spasm musculoskeletal strain ACS PE pneumonia etc. Initial workup will be conducted with hematologic labs plain film chest x-ray twelve-lead EKG. Initial interventions include Toradol Tylenol. Initial workup reviewed by me shows that her hematologic labs are nonactionable and my informal interpretation of her plain film chest x-ray shows no acute processes.. Upon repeat evaluation patient is breathing easier after DuoNeb and her back pain is resolved. Given this appropriate for discharge home with close follow-up with her PCP, reiterated and supported use of her metered-dose inhalers from at home given her recent COVID. Critical Care Critical Care Time Critical Care Time: No
--- NOTE | 2024-02-28 19:29 | XR_ITS ---
PROCEDURE INFORMATION: Exam: XR Chest Exam date and time: 02/28/2024 8:13 PM Age: 28 years old Clinical indication: Shortness of breath TECHNIQUE: Imaging protocol: Radiologic exam of the chest. Views: 1 view. COMPARISON: No relevant prior studies available. FINDINGS: Lungs: Unremarkable. No consolidation. Pleural spaces: Unremarkable. No pleural effusion. No pneumothorax. Heart/Mediastinum: Unremarkable. No cardiomegaly. Bones/joints: Unremarkable. IMPRESSION: No acute findings.
[2024-02-28 19:32] VITALS: BP 139/87; PULSE 87; O2SAT 98
[2024-02-28 19:50] LABS: Chloride 106 mmol/L (98-107); Potassium 3.4 mmoL/L (3.5-5.1); Sodium 139 mmol/L (136-145)
[2024-02-28 19:53] LABS: Alanine Aminotransferase 32 U/L (12-78); Albumin Level 3.6 g/dl (3.5-5.0); Albumin/Globulin Ratio 1.2 (1.1-1.8); Alkaline Phosphatase 81 U/L (38-126); Anion Gap 6.4 mEq/L (5-15); Aspartate Amino Transferase 26 U/L (14-36); Bilirubin,Total 0.4 mg/dl (0.2-1.3); Blood Urea Nitrogen 9 mg/dl (7-17); Calcium 9.8 mg/dl (8.4-10.2); Carbon Dioxide 30 mmol/L (22.0-30.0); Creatinine Clearance Estimated 94 mL/min (50-200); Estimated Glomerular Filt Rate 99 ml/min (>60); GFR (African American) 120 ML/MIN (>60); Globulin 2.9 g/dL (1.3-3.2); Glucose 112 mg/dl (74-100); Lipase 77 U/L (23-300); Magnesium 1.5 mg/dl (1.6-2.3); Prothrombin Time 10.8 seconds (10.1-12.5); Total Protein,Serum 6.5 g/dl (6.3-8.2)
[2024-02-28] MEDS: LIDOCAINE 5% TRANSDERMAL PATCH 1 EACH TP (19:55)
[2024-02-28] MEDS: LACTATED RINGERS 1000ML 1,000 ML 999 ML IV (19:55)
[2024-02-28] MEDS: ACETAMINOPHEN 1,000MG/100ML VIAL 1000 MG IV (19:55)
[2024-02-28 19:56] LABS: HCG Qualitative, Serum Negative (Negative)
[2024-02-28 19:59] LABS: Basophils # 0.1 K/mm3 (0-0.2); Basophils % 0.7 % (0.1-2.0); Eosinophils # 0.2 K/mm3 (0.0-0.4); Eosinophils % 1.3 % (0.1-12.0); Hematocrit 39.1 % (37.0-47.0); Lymphocytes # 3.7 K/mm3 (0.7-4.5); Lymphocytes % 33.4 % (10-50); Mean Corpuscular HGB Conc 33.2 g/dL (31.8-35.4); Mean Corpuscular Hemoglobin 29.9 pg (27.0-31.2); Mean Corpuscular Volume 89.9 fl (81-99); Monocytes # 0.4 K/mm3 (0.1-1.0); Monocytes % 3.8 % (1.7-9.3); Neutrophils # 6.7 K/mm3 (1.8-7.8); Neutrophils % 60.8 % (37.0-80.0); Platelet Count 290 K/mm3 (142-424); Red Blood Count 4.35 M/mm3 (4.20-5.40); Red Cell Distribution Width 13.1 % (11.5-17.5); White Blood Count 11.1 K/mm3 (4.8-10.8)
[2024-02-28 20:02] VITALS: BP 160/87; PULSE 84; O2SAT 98
[2024-02-28 20:04] LABS: NT Pro Brain Natriuretic Pep. 318 pg/mL (0-125)
[2024-02-28 20:10] VITALS: PULSE 82; PULSE 92
[2024-02-28 20:10] LABS: D-Dimer 0.44 ug/mL (0.0-0.5)
[2024-02-28] MEDS: IPRATROPIUM/ALBUTEROL 3 ML NEB IH (20:10)
[2024-02-28 20:11] LABS: Troponin I < 0.01 ng/ml (0.00-0.034)
[2024-02-28 22:13] VITALS: BP 146/74; PULSE 78; RESP 19; TEMP 36.7; O2SAT 98
== END 2024-02-28 22:14 | disposition home or self-care (01) ==
PROVIDERS: Physician Assistant; Emergency Provider Student in an Organized Health Care Education/Training Program; PCP Nurse Practitioner Family
DX: J45.21 Mild intermittent asthma with (acute) exacerbation (principal); M54.6 Pain in thoracic spine
CPT/HCPCS: 71045; 80053; 83690; 83735; 83880; 84484; 84703; 85025; 85378; 85610; 93005; 96361; 96374; 96375; 99284; J0131

== ENCOUNTER 2024-04-12 07:54 | Outpatient (CLI) | payer OTHER, SELFPAY ==
--- NOTE | 2024-04-12 07:56 | CA_ITS ---
APPROVED REPORT EXAM: Comprehensive 2D, Doppler, and color-flow Echocardiogram Environmental Emergencies Planner: ALIYAH Herrmann, RVS Ht: 5 ft 2 in Wt: 286lbs BSA: 2.23 BP: 149/80 mmHg Indications: SOA,Asthma, HTN Echo Enhancing Agent Comments: TDS due to extreme body habitus 2D Dimensions Left Atrium 2.44 cm LA Volume 42.70 mL LA Volume Index 18.70 mL/m2 (M/F) 16-34 M-Mode Dimensions RVDd 2.40 cm (0.9-2.6) LA Diam 3.28 cm (1.9-4.0) LVDd 4.45 cm (3.5-5.7) LVDs 3.36 cm (3.5-5.7) IVSd 0.86 cm (0.6-1.1) PWd 1.04 cm (0.6-1.1) EF (Teich) 56.10% EPSs 0.36 cm FS 29.30% EDV (Teich) 104.90 mL ESV (Teich) 46.10 mL LV Diastology E Decel Time 157 (160-240 msec) E/A Ratio 1.30 MED A' 7.40 cm/s LAT A' 11.40 cm/s Aortic Valve CAESAR Index 1.05 cm2/m2 AoV Peak Carlos. 141.0 (50-130 cm/s) AO Peak GR. 7.90 mmHg AO Mean GR. 3.90 (<5 mmHg) AO VTI 26.6 (18-25 cm) CAESAR (VTI) 2.40 (2.5-4.5 cm2) Mitral Valve MV A Velocity 64.0 (40-130 cm/s) E/A Ratio 1.30 Pulmonary Valve PV Peak Velocity 89.0 (50-150 cm/s) Tricuspid Valve TR P. Velocity 213.00 cm/s RAP Estimate 10.00 mmHg RVSP 28.10 mmHg Left Ventricle The left ventricle is normal size. The left ventricular systolic function is normal. The left ventricular ejection fraction is within the normal range. There is normal left ventricular wall thickness. There is normal LV segmental wall motion. The left ventricular diastolic function is normal. LVEF is 55%. Right Ventricle The right ventricle is normal size. The right ventricular systolic function is normal. Atria The left atrium size is normal. The right atrium size is normal. The interatrial septum is not well-visualized. Aortic Valve The aortic valve opens well. There is no aortic valvular stenosis. No aortic regurgitation is present. Mitral Valve The mitral valve is normal in structure. No evidence of mitral valve stenosis. Trace mitral regurgitation. Tricuspid Valve The tricuspid valve leaflets are thin and pliable. Trace tricuspid regurgitation. RVSP is normal. Pulmonic Valve The pulmonary valve is normal in structure. Trace pulmonic regurgitation. Great Vessels The aortic root is normal in size. The ascending aorta is not well-visualized. IVC is normal in size and collapses >50% with inspiration. Pericardium There is no pericardial effusion. Other Information Study Quality: Technically Difficult Conclusion Technically difficult study due to poor acoustic windows. Normal biventricular systolic function. No significant valvular stenosis or regurgitation. Electronically signed by : Magda Helm MD 04/15/2024 19:31:03
--- NOTE | 2024-04-12 10:13 | CA_ITS ---
APPROVED REPORT Exam: Exercise Treadmill Technologist: Daiana Santana, Ht: 5 ft 2 in Wt: 286 lbs BSA: 2.23 m2 HR: 93 bpm BP: 136/74 mmHg Rhythm: NSR Medical History Medications: Flonase,,,,, Buspirone,,,,, Zoloft,,,,, Valsartan,,,,, Famotidine,,,,, Levocetirizine,,,,, RoSUVASTATIN,,,,, [place],,,,, Stress Test Details Test: Raza Reason for pharmacologic stress test: physical limitation. HR Resting HR: 94 bpm Max Heart Rate (APMHR): 191 bpm Max HR Achieved: 172 bpm Target HR (85% APMHR): 162 bpm % of APMHR: 90 Recovery HR: 108 bpm HR response to stress: Normal HR response to stress BP Resting BP: 142.0/87.0 mmHg Max BP: 186.0/84.0 mmHg Recovery BP: 127.0/59.0 mmHg BP response to stress: Normal blood pressure response to stress. ECG Resting ECG: NSR, rightward axis Stress EC.[address] depression Arrhythmia: None Recovery ECG: Return to baseline within 3 minutes of recovery Recovery Arrhythmia: None Clinical Exercise duration: 04:57 min Highest Stage Achieved: II Exercise capacity: 7.0 METs Overall Exercise Capacity for Age: Poor Stress ECG Conclusion The patient was able to exercise for a total of 4 minutes, 57 seconds. She achieved a total of 7 METS. She has poor exercise capacity compared to age and sex matched peers. She has normal HR and BP response to exercise. Max HR: 172 % of PM: 90% Max BP: 186/84 METs: 7.0 Test stopped due to: dyspnea Symptoms: Dyspnea. No chest pain Arrhythmias/Ectopy: None ST-T Changes: Normal ST response to exercise. Conclusion: Poor exercise capacity. Normal no evidence of ischemic ECG changes at peak stress. GXT only (no imaging). Test Summary REST . . . . . . . Sitting REST . . . . . . . Standing REST 03:45 0.0 0.0 94 . 142/ 87 . . Stage 1 01:00 10.0 1.7 131 . . . . Stage 1 02:00 10.0 1.7 146 . . . . Stage 1 03:00 10.0 1.7 152 . 186/ 84 . . Stage 2 01:00 12.0 2.5 165 . . . . Stage 2 01:57 12.0 2.5 171 . . . Stop exercise at 04:57 RECOVERY 01:00 0.0 0.0 155 . . . . RECOVERY 02:00 0.0 0.0 122 . . . . RECOVERY 03:00 0.0 0.0 115 . . . . RECOVERY 04:00 0.0 0.0 117 . . . . RECOVERY 05:00 0.0 0.0 107 . . . . RECOVERY 06:00 0.0 0.0 110 . 133/ 66 . . RECOVERY 07:00 0.0 0.0 108 . 127/ 59 . . RECOVERY 07:06 0.0 0.0 108 . 127/ 59 . . Electronically signed by : Magda Helm MD 04/15/2024 23:49:06
== END 2024-04-12 23:59 | disposition home or self-care (01) ==
LOC: RT 07:56
PROVIDERS: PCP Nurse Practitioner Family; Visit Provider Physician Assistant
DX: R06.00 Dyspnea, unspecified (principal); I10 Essential (primary) hypertension; E66.9 Obesity, unspecified; Z68.43 Body mass index [BMI] 50.0-59.9, adult
CPT/HCPCS: 93017; 93018; 93306

== ENCOUNTER 2024-06-21 10:23 | Outpatient (CLI) | payer OTHER, SELFPAY ==
--- NOTE | 2024-06-21 10:27 | MM_ITS ---
PROCEDURE INFORMATION: Exam: MG Bilateral Screening 3D Mammography Exam date and time: 06/21/2024 10:15 AM Age: 29 years old Clinical indication: Screening exam. TECHNIQUE: Imaging protocol: Bilateral Screening tomosynthesis and 2D mammography including computer-aided detection (CAD) when performed. COMPARISON: No relevant prior studies available. FINDINGS: MAMMOGRAPHY: Breast composition: There are scattered areas of fibroglandular density. Mass: 0.6 cm mass upper-outer right breast posterior depth. Architectural distortion: None. Calcifications: No suspicious calcifications. Asymmetric density: None. Skin thickening: None. Axillary adenopathy: None. IMPRESSION: Subcentimeter right breast mass. Recommend further evaluation with right breast ultrasound. ASSESSMENT: BI-RADS Category 0: Incomplete- Need Additional Imaging Evaluation.
== END 2024-06-21 23:59 | disposition home or self-care (01) ==
LOC: RAD 10:23
PROVIDERS: PCP Nurse Practitioner Family; Visit Provider Nurse Practitioner Family
DX: Z12.31 Encounter for screening mammogram for malignant neoplasm of breast (principal)
CPT/HCPCS: 77063; 77067

== ENCOUNTER 2024-06-30 13:13 | Outpatient (CLI) | payer OTHER, SELFPAY ==
--- NOTE | 2024-06-30 13:18 | US_ITS ---
PROCEDURE INFORMATION: Exam: US Right Breast, Complete Exam date and time: 06/30/2024 1:28 PM Age: 29 years old Clinical indication: Callback for additional assessment of 0.6 cm right upper outer posterior breast mass identified on 06/21/2024 screening mammogram TECHNIQUE: Imaging protocol: Complete ultrasound of all four quadrants of the right breast and the retroareolar regions, including ultrasound of the axilla when performed. COMPARISON: MG MM DIG SCREENING MAMM BI W/CAD 06/21/2024 10:15 AM FINDINGS: ULTRASOUND: Breast ultrasound findings: Ultrasound assessment of the upper outer quadrant of the right breast In the region of mammographic interest, right axillary tail about 11 cm nipple, there is a morphologically normal 1.1 cm lymph node. This correlates well in size in location with the mammographic finding No suspicious solid or cystic mass No distortion or shadowing IMPRESSION: No sonographic evidence of malignancy. Annual mammographic screening is recommended unless otherwise clinically indicated. ASSESSMENT: BI-RADS category 2: Benign
== END 2024-06-30 23:59 | disposition home or self-care (01) ==
LOC: RAD 13:13
PROVIDERS: PCP Nurse Practitioner Family; Visit Provider Nurse Practitioner Family
DX: N63.10 Unspecified lump in the right breast, unspecified quadrant (principal)
CPT/HCPCS: 76641

== ENCOUNTER 2025-05-09 15:51 | Outpatient (CLI) | payer BC, SELFPAY ==
--- OUTSIDE RECORDS SUMMARY | 2025-05-09 15:53 | XMS_ITS | Clinical Summary ---
Author Organization [facility] Address [address], [address] [place] [address] Care Team Providers Care Auto Driver Name Role Phone Unavailable Primary Care Provider Unavailabl e Allergies Active Allergy Reactions Criticality Noted Date Comments Cephalexin Hives 04/09/2023 Latex Rash Low 04/09/2023 Medications busPIRone (BUSPAR) 5 MG tablet Take 1 tablet by mouth 3 times daily 0100, 0900 1700 Active labetalol (NORMODYNE) 200 MG tabletIndication s:Gestational Hypertension Take 1 tablet by mouth 2 times daily Indications: -Induce d Hypertension 9 am & 9 pm Active loratadine (CLARITIN) 10 MG capsule Take 1 capsule by mouth in the morning and at bedtime Active ibuprofen (ADVIL;MOTRIN) 800 MG tablet Take 1 tablet by mouth every 6 hours as needed for Pain Active dicyclomine (BENTYL) 20 MG tablet Take 1 tablet by mouth 4 times daily (before meals and nightly) for 10 days 40 tablet Active Bacillus Coagulans-Inulin (PROBIOTIC) 1-250 BILLION-MG CAPS Take by mouth Active Active Problems Problem Noted Date Diagnosed Date Calculus of gallbladder with out cholecystitis without obstruction 04/28/2023 Clostridium difficile diarrhea 04/13/2023 Choledocholithiasis 04/09/2023 RUQ abdominal pain 04/09/2023 Social History Tobacco Use Types Packs/Day Years Used Date Smoking Tobacco: Former Cigarettes 0.5 13 0 11/10/2008 - 11/10/2021 Smokeless Tobacco: Never Tobacco Cessation:Counseling Given: Not Answered Alcohol Use Standard Drinks/Week Comments Not Currently 0 (1 standard drink = 0.6 oz pur e alcohol) Interpersonal Safety Domain Source: IP Abuse Scr eening Answer Date Recorded Read-Only, Retired: Physical Abuse Denies 04/28/2023 Read-Only, Retired: Verbal Abuse Denies 04/28/2023 Read-Only, Retired: Emotional abuse Denies 04/28/2023 Read-Only, Retired: Financial Abuse Denies 04/28/2023 Read-Only, Retired: Sexual abuse Denies 04/28/2023 Comments No Sex and Gender Information Value Date Recorded Sex Assigned at Not on file Legal Sex Female 12:51 AM EDT Gender Identity Not on file Sexual Orientation Not on file Last Filed Vital Signs Vital Sign Reading Time Taken Comments Blood Pressure 112/73 05/12/2023 3:39 PM EDT Pulse 93 05/12/2023 3:39 PM EDT Temperature 36 C (96.8 F) 04/28/2023 8:43 AM EDT Respiratory Rate 9 04/28/2023 8:43 AM EDT Oxygen Saturation 99% 04/28/2023 9:18 AM EDT Inhaled Oxygen Concentration - - Weight 110.2 kg (243 lb) 05/12/2023 3:39 PM EDT Height 157.5 cm (5' 2 ) 05/12/2023 3:39 PM EDT Body Mass Index 44.45 05/12/2023 3:39 PM EDT Plan of Treatment Health Maintenance Due Date Last Done Comments Depression Screen 2006 Varicella vaccine (1 of 2 - 13+ 2-dose series) 2007 HIV screen 2009 Hepatitis C screen 2012 Hepatitis B vaccine (1 of 3 - 19+ 3-dose series) 2013 Pap smear 2015 Cervical cancer screen 2024 HPV (without or with Pap) 2024 COVID-19 Vaccine ( - 2023-2 5 season) 2024 Flu vaccine (#1) 05/25/2025 07/22/2022, 11/17/2011 DTaP/Tdap/Td vaccine (3 - Td or Tdap) 02/19/2033 02/19/2023, 06/15/2022 Pneumococcal 0-49 years Vaccine Aged Out 11/17/2011 No longer eligible b ased on patient's age to complete this topic HPV vaccine Aged Out No longer eligi ble based on patient's age to complete this topic Hepatitis A vaccine Aged Out No longe r eligible based on patient's age to complete this topic Hib vaccine Aged Out No longer eligi ble based on patient's age to complete this topic Meningococcal (ACWY) vaccine Aged Out No longer eligible based on patient's age to complete this topic Meningococcal B vaccine Aged Out No l onger eligible based on patient's age to complete this topic Polio vaccine Aged Out No longer elig ible based on patient's age to complete this topic Medical Devices Implanted Type Area Fur Drummer Device Identifier Shelf Expiration Date Model / Serial / Lot Screw Left: Arm Clip Int M L Polymer Marialuisa Lig Hem O Marialuisa - [id number] Implanted:Qty: 1 on 04/28/2023 by Usman Hernandez MD at [facility] N/A: Abdomen [employer] [id number] / / Insurance [facility] [place] Advance Directives * Full Code (Latest Code Status on File) Date Activated Date Inactivated Comments 04/09/2023 5:19 AM 04/13/2023 9:41 PM * Full Code Date Activated Date Inactivated Comments 04/09/2023 5:19 AM 04/09/2023 5:19 AM
--- OUTSIDE RECORDS SUMMARY | 2025-05-09 15:53 | XMS_ITS | Clinical Summary ---
Author Organization [facility] Address [address] [place] [address] Care Team Providers Care Sample Wrapper Name Role Phone Shireen Solitario APRN Primary Care Provider [phone] Allergies Active Allergy Reactions Criticality Noted Date Comments Cephalexin Hives Medium 12/05/2022 Latex Rash Low 12/05/2022 Medications labetalol (Normodyne) 200 MG tablet Take 1 tablet (200 mg total) by mouth 2 (two) times a day. 60 tablet 11 12/06/2022 Active EQ Aspirin Adult Low Dose 81 MG EC tablet Take 81 mg by mouth 1 (one) time each day. 12/29/2022 Active ergocalciferol 1.25 MG (80282 UT) capsule TAKE 1 CAPSULE BY MOUTH ONCE A WEEK FOR 12 WEEKS 07/22/2022 Active famotidine (Pepcid) 20 MG tablet Take 20 mg by mouth. 12/08/2022 Active ferrous sulfate 325 (65 Fe) MG tablet 1 (one) time each day. Active Cetirizine HCl (ZyrTEC ALLERGY) 10 MG capsule 1 capsule 1 (one) time each day. Active fluticasone (Flonase Allergy Relief) 50 MCG/ACT nasal spray 1 (one) time each day. Active Vit-Fe Fumarate-FA (M- Plus) 27-1 MG tablet Take 1 tablet by mouth 1 (one) time each day. 12/29/2022 Active sertraline (Zoloft) 50 MG tablet Take 50 mg by mouth 1 (one) time each day. 07/02/2022 Active albuterol 108 (90 Base) MCG/ACT inhaler INHALE 2 PUFFS BY MOUTH EVERY 4 TO 6 HOURS NEEDED 07/02/2022 Active Active Problems Problem Noted Date Diagnosed Date Right upper quadrant abdominal pain 01/21/2023 Acute biliary pancreatitis without infection or necrosis 12/06/2022 Cholelithiasis affecting pre gnancy in third trimester, antepartum 12/05/2022 Social History Tobacco Use Types Packs/Day Years Used Date Smoking Tobacco: Former Cigarettes Q uit: 09/24/2022 Passive Smoke Exposure: Current Smokeless Tobacco: Former Comments:Stopped vaping 2 mo nths ago Alcohol Use Standard Drinks/Week Comments Not Currently 0 (1 standard drink = 0.6 oz pur e alcohol) CAGE ASSESSMENT Answer Date Recorded Cage unable to access Not on file 12/05/2022 Cage max number of drinks Not on file 2022 Cage Beverages a week Not on file 12/05/2022 Have you ever felt you should CUT down on your d rinking? 0 12/05/2022 Have you been ANNOYED by people criticizing your drinking? 0 12/05/2022 Have you felt GUILTY about your drinking? 0 12/05/2022 Have you had a drink first t linda in the morning ([employer]) to steady your nerves or to get rid of a hangover? 0 12/05/2022 CAGE Questionnaire Score 0 023 Comments No Sex and Gender Information Value Date Recorded Sex Assigned at Not on file Legal Sex Female 9:37 AM EST Gender Identity Not on file Sexual Orientation Not on file Last Filed Vital Signs Vital Sign Reading Time Taken Comments Blood Pressure 113/76 01/25/2023 11:33 AM EDT Pulse 78 01/25/2023 11:33 AM EDT Temperature 37 C (98.6 F) 01/25/2023 11:33 AM EDT Respiratory Rate 16 01/25/2023 11:33 AM EDT Oxygen Saturation 97% 01/25/2023 11:33 AM EDT Inhaled Oxygen Concentration - - Weight - - Height - - Body Mass Index - - Plan of Treatment Health Maintenance Due Date Last Done Comments [facility]-Depression Screening 1994 [facility]-HIV Screening 1994 [facility]-Hepatitis C Screening 1994 [facility]-Infant/Child/Adol SDOH Screenings 1994 [facility]-Varicella Vaccines (1 of 2 - 13+ 2-dose series) 2007 HPV Vaccines (1 - 3-dose series) 2009 [facility]- SDOH Screenings 2012 [facility]-Adult SDOH Screenings 2012 [facility]-Hepatitis B Vaccines (1 of 3 - 19+ 3-dose series) 2013 [facility]-Pap Smear 2015 [facility]-Cervical Cancer Screening 2024 [facility]-HPV/Cotest 2024 [facility]-XMTCO-26 Vaccine (1 - season) 2024 [facility]-Influenza Vaccine (#1) 06/25/202507/22, 11/17/2011 [facility]-DTaP,Tdap,and Td Vaccines (3 - Td or Tdap) 02/19/2033 02/19/2023, 06/15/2022 [facility]-Zoster Vaccines (1 of 2) 2044 [facility]-Pneumococcal Vaccine: Pediatrics (0 to 5 Years) and At-Risk Patients (6 to 49 Years) Aged Out 11/17/2011 No longer eligible b ased on patient's age to complete this topic [facility]-HIB Vaccines Aged Out No longer e ligible based on patient's age to complete this topic [facility]-Hepatitis A Vaccines Aged Out No longer eligible based on patient's age to complete this topic [facility]-IPV Vaccines Aged Out No longer e ligible based on patient's age to complete this topic [facility]-Rotavirus Vaccines Aged Out No lo nger eligible based on patient's age to complete this topic Insurance [employer] Advance Directives * Full Code (Latest Code Status on File) Date Activated Date Inactivated Comments 01/21/2023 11:47 AM 01/25/2023 7:29 PM Question Answer Comments Patient has decision-making capacity? Yes * Full Code Date Activated Date Inactivated Comments 12/05/2022 10:07 PM 12/06/2022 6:19 PM Question Answer Comments Patient has decision-making capacity? Yes Care Teams Sample Wrapper Relationship Specialty Start Date End Date Shireen Solitario APRN [address] [place] [address] PCP - General 12/06/21
--- OUTSIDE RECORDS SUMMARY | 2025-05-09 15:53 | XMS_ITS | Data Portability ---
Author Organization [facility] Address [address] [place] [address] Care Team Providers Care Digital X Ray Service Engineer Name Role Phone DORA HUSSEIN Primary Care Provider [phone] Assessment No assessment recorded. Plan of Treatment Reminders Order Date Submit Date Provider Last Modified By Organization Details Last Modified Time Details Appointments None recorded. Lab None recorded. Referral None recorded. Procedures None recorded. Surgeries cholecystec shahzad, laparoscopi c (SURG) 2022 023 [email or web address] [facility] (Outpatient [facility]), [address] [place] [address], [place], [address], 17:06:28 Imaging None recorded. Medication Orders None recorded. Patient TargetsNo targets recorded. Patient InstructionsNo instructions recorded. Reason for Referral None Reported. Results Created Date Observation Date Name Description Value Unit Range Abnormal Flag Note LastModifiedBy Organization Detail LastModifiedTime Result Notes None recorded. Procedures Surgical History Date Name Laterality Status Provider Name and Address Organization Details Recorded Time 10/25/19 12 Other completed Shira CURRY [facility] [place] 03/30/2023 11:13:30 10/25/19 07 Tonsillectomy/Malu noidectomy completed Shira CURRY [facility] [place] 03/30/2023 11:13:30 Tonsillectomy completed Shira CURRY [facility] [place] 02/16/2023 14:36:39 extraction of wisdom tooth completed Shira CURRY [facility] [place] 02/16/2023 14:37:32 Imaging Results None recorded. Procedure Notes None recorded. Medical Equipment None Reported. Allergies Allergen ID Allergen Name Allergen Category Reaction Reaction Severity Criticality Documentation Date Start Date Code Code System Note Provider Name and Address Organization Details Recorded Time 64594 latex environme nt,medica tion Not available Not available Not available 02/16/2023 65790 91 RxNorm Shira kang, STELLA - [facility] [place] 14:33:09 63087 cephalexi n medicatio n Not available Not available Not available 02/16/2023 2231 RxNorm Shira kang, STELLA - [facility] - [place] [facility] [place] 14:33:24 Medications Name Sig Start Date Stop Date Status Note LastModified by Organization Details LastModified Time buspirone 5 mg tablet TAKE 1 TABLET BY MOUTH THREE TIMES DAILY NEEDED active Not Available Not Available No t Available labetalol 200 mg tablet TAKE 1 TABLET BY MOUTH TWICE DAILY active Not Available Not Available No t Available ibuprofen 800 mg tablet TAKE 1 TABLET BY MOUTH EVERY 6 HOURS NEEDED active Not Available Not Available No t Available aspirin 81 mg tablet,delaye d release Take 1 tablet every day by oral route. 03/30 completed Not Available Not Available Not Available sertraline 25 mg tablet TAKE 1 TABLET BY MOUTH ONCE DAILY active Not Available Not Available No t Available ferrous sulfate 325 mg (65 mg iron) tablet,delaye d release TAKE 1 TABLET BY MOUTH TWICE DAILY active Not Available Not Available No t Available amoxicillin 875 mg-potassium clavulanate 125 mg tablet TAKE 1 TABLET BY MOUTH EVERY 12 HOURS FOR 10 DAYS active Not Available Not Available No t Available buspirone active Not Available Not Isadora ilable Not Available FeroSul 325 mg (65 mg iron) tablet TAKE 1 TABLET BY MOUTH TWICE DAILY active Not Available Not Available No t Available Mery Allergy active Not Available Not Available Not Available M-Kim Plus 27 mg iron-1 mg tablet Take 1 tablet every day by oral route. 03/30 completed Not Available Not Available Not Available Vitals Date Recorded Body height Body mass index (BMI) Body weight Heart rate Oxygen saturation Oxygen saturation in Arterial blood by Pulse oximetry Body temperature Systolic And Diastolic Provider Name and Address Organization Details Last Updated DateTime 3 157.48 cm 46.5 kg/m2 378198. 9 g 75 /min 99 % 99 % 98.2 [degF] 125/77 mm[Hg] Shira CURRY [facility] [place] 14:43:34 Date Recorded Body height Body mass index (BMI) Body weight Provider Name and Address Organization Details Last Updated DateTime 03/30/2023 157.48 cm 43.2 kg/m2 508460.24 g Shira CURRY [facility] [place] 03/30/2023 11:16:22 Social History Question Answer Notes LastModified by Organizat [place] Details LastModified Time Tobacco Smoking Status Former Smoker STELLA Wright [facility] [place] 02/16/2023 14:36:18 Do You Have An Advance Directive? No [email or web address] Information not available 03/30/2023 Are You Blind Or Do You Have Difficulty Seeing? No [email or web address] Information not available 03/30/2023 What Was The Date Of Your Most Recent Tobacco Screening? 03/30/2023 [email or web address] Information not available 03/30/2023 Are You Passively Exposed To Smoke? No [email or web address] Information not available 03/30/2023 Sex: Female Functional Status Question Answer Note LastModified by Organizat ion Details LastModified Time Do you use any illicit or recreational drugs? No Information not available 03/30/2023 What is your level of alcohol consumption? None [email or web address] Information not available 03/30/2023 What is your exercise level? Occasional [email or web address] Information not available 03/30/2023 Mental Status Question Answer Note LastModified by Organization D etails LastModified Time Do you feel stressed (tense, restless, nervous, or anxious, or unable to sleep at night)? [id number] [email or web address] Information not available 03/30/2023 Family History Relationship Description Onset Age of this Age Resolved Age Notes LastModified by Organization Details LastModified Time Mother Malignant tumor of breast [email or web address] Not available 2022 14:35:16 Mother Essential hypertension Not available 14:36:09 Father Diabetes mellitus [email or web address] Not available 2022 14:35:52 Father Essential hypertension Not available 14:36:03 Medical History Condition Response Obesity Y Back Problems Y Hypertension Y Gynecological History Statement/Question Response Current Control Method None Sexually Active? Y Obstetrics History GPAL:G 0 P 0 0 0 0 Past Encounters Encounter ID Performer Location Encounter Start Date Encounter Closed Date Diagnosis/Indication Diagnosis SNOMED-CT Code Diagnosis ICD10 Code Diagnosis Note [id number] Phil Funk MD [facility] [address] [place], [place] [address] 02/16/2023 14:10:01 02/18/2023 09:40:22 Calculus of gallbladder with cholecystitis 28232356 K80.10 She will hopefully delivered before she require surgery. Will plan for laparoscop ic cholecyste ctomy with possible intraopera tive cholangiog janes following delivery. The benefits and risks of the procedure were explained to the patient including the risks of bleeding, infection, and reaction to anesthesia . I also discussed the rarer but more serious complicati ons of injury to the abdominal organs as well as the common bile duct. l also discussed the possible need for an open procedure. The patient understand s and wishes to proceed. Gestation period, 36 weeks 01775018 Z3A.36 see above. [id number] MD TYRELL Wilkins General Surgery [address] [place] [phone] 03/30/2023 10:17:11 03/30/2023 11:33:24 Calculus of gallbladder with cholecystitis 56918351 K80.10 Laparoscop ic cholecyste ctomy with possible intraopera tive cholangiog janes.The benefits and risks of the procedure were explained to the patient including the risks of bleeding, infection, and reaction to anesthesia . I also discussed the rarer but more serious complicati ons of injury to the abdominal organs as well as the common bile duct. l also discussed the possible need for an open procedure. The patient understand s and wishes to proceed. Health Concerns Section Related Observation LastModified by Organization Detai ls LastModified Time None Recorded Concern Status LastModified by Organization Details LastModified Time None Recorded Advance Directives Directive N: Payers Insurance Date Sequence Insurance Name Policy Number Policy Martinez Covered Member ID Martinez Member ID Guarantor Name 04/01/2023 1 [facility] (MEDICAID REPLACEMENT - [place]MO) [place] Edel Sloan [id number] Edel Sloan 09/07/2023 1 [place] [employer] [place] FFS/TRADITION [place] Edel Sloan [id number] Edel Sloan 04/13/2023 1 [facility] (MEDICAID REPLACEMENT - [place]MO) [place] Edel Sloan [id number] Edel Sloan 04/01/2023 2 [facility] (MEDICAID REPLACEMENT - HMO) Edel Sloan [id number] Edel Sloan Notes Date Note Type Note Provider Name and Address Organization Details Recorded Time 02/16/2023 text/html Edel is a 27-year-old woman who is 36 weeks . She has had episodes of right upper quadrant pain starting at 25 weeks of . She has had associated nausea, vomiting and shortness of breath. She has had a total of 4-5 attacks. An ultrasound of her right upper quadrant showed gallbladder sludge and cholelithiasis without cholecystitis. After one of her attacks she had an elevated amylase. Phil Funk MD [address] [place] [address] Drive,[address], [place], [address], [facility] & [place] 02/16/2023 15:32:59 03/30/2023 text/html Edel is a 27-year-old woman who recently delivered. She has had episodes of right upper quadrant pain starting at 25 weeks of . She has had associated nausea, vomiting and shortness of breath. She has a family history disease. An ultrasound of her right upper quadrant showed gallbladder sludge and cholelithiasis without cholecystitis. After one of her attacks she had an elevated amylase. Phil Funk MD [address] [place] [address] Drive,[address], [place], [address], [place] - [facility] [place] 03/30/2023 12:36:26 OBGyn Episode No OBEpisode recorded.
--- OUTSIDE RECORDS SUMMARY | 2025-05-09 15:53 | XMS_ITS | Clinical Summary ---
Author Organization [facility] Address [address] [place] [address] [address] [place] [address] Phone Care Team Providers Care Commissary Clerk Name Role Phone Unavailable Primary Care Provider Unavailabl e Social History Tobacco Use Types Packs/Day Years Used Date Smoking Tobacco: Never Assessed Comments Unknown Sex and Gender Information Value Date Recorded Sex Assigned at Not on file Legal Sex Female 8:23 AM EDT Gender Identity Not on file Sexual Orientation Not on file Plan of Treatment Health Maintenance Due Date Last Done Comments Annual Wellness Exam 1997 DTaP/TDaP/Td (1 - Tdap) 2013 Hepatitis B Vaccine (1 of 3 - 19+ 3-dose series) 2013 COVID-19 Vaccine (2023-2 5 season) 2024 Influenza Vaccine (#1) 2025 Meningococcal B Vaccine Aged Out No l onger eligible based on patient's age to complete this topic Pneumococcal Vaccine 0-49 Aged Out No longer eligible based on patient's age to complete this topic
[2025-05-09 16:12] LABS: Hematocrit 38.8 % (37.0-47.0); Hemoglobin 12.7 g/dL (12.2-16.2); Immature Granulocytes % 0.3 %; Mean Corpuscular HGB Conc 32.7 g/dL (31.8-35.4); Mean Corpuscular Hemoglobin 28.7 pg (27.0-31.2); Mean Corpuscular Volume 87.8 fl (81-99); Nucleated Red Blood Cells % 0 %; Platelet Count 278 K/mm3 (142-424); Red Blood Count 4.42 M/mm3 (4.20-5.40); Red Cell Distribution Width-SD 39.2 fL; White Blood Count 9.6 K/mm3 (4.8-10.8)
[2025-05-09 16:46] LABS: Albumin Level 4.0 g/dl (3.5-5.0)
[2025-05-09 16:47] LABS: Chloride 103 mmol/L (98-107); Potassium 4.0 mmoL/L (3.5-5.1); Sodium 138 mmol/L (136-145)
[2025-05-09 16:49] LABS: Alanine Aminotransferase 21 U/L (12-78); Anion Gap 11.0 mEq/L (5-15); Aspartate Amino Transferase 28 U/L (14-36); Bilirubin,Unconjugated 0.1 mg/dL (0.0-1.1); Blood Urea Nitrogen 5 mg/dl (7-17); Carbon Dioxide 28 mmol/L (22.0-30.0); Creatinine,Serum 0.60 mg/dl (0.52-1.04); Estimated Glomerular Filt Rate 117 ml/min (>60); GFR (African American) 142 ML/MIN (>60)
[2025-05-09 16:50] LABS: Alkaline Phosphatase 80 U/L (38-126); Bilirubin,Direct 0.1 mg/dl (0.0-0.4); Bilirubin,Indirect 0.1 mg/dL (0.0-0.9); Bilirubin,Total 0.2 mg/dl (0.2-1.3); Calcium 9.3 mg/dl (8.4-10.2); Glucose 80 mg/dl (74-100); HDL Cholesterol 43 mg/dl (40-60); Magnesium 1.7 mg/dl (1.6-2.3); Total Protein,Serum 7.1 g/dl (6.3-8.2); Triglycerides 239 mg/dl (30-150)
[2025-05-09 17:13] LABS: Free T4 (Free Thyroxine) 1.13 ng/dl (0.78-2.19)
[2025-05-09 17:22] LABS: Thyroid Stimulating Hormone 1.06 uIU/mL (0.465-4.68)
[2025-05-09 17:39] LABS: Cholesterol 363 mg/dl (140-200)
== END 2025-05-09 23:59 | disposition home or self-care (01) ==
LOC: LAB 15:52
PROVIDERS: PCP Nurse Practitioner Family; Visit Provider Nurse Practitioner
DX: I48.91 Unspecified atrial fibrillation (principal); I10 Essential (primary) hypertension
CPT/HCPCS: 36415; 80048; 80061; 80076; 83735; 84439; 84443; 85025; 93270